=== PATIENT | male | born 1950 | race Caucasian/White ===

== ENCOUNTER → 2017-01-05 | Outpatient (CLI) | payer MEDICARE ==
--- NOTE | 2017-01-06 08:35 | MRI ---
EXAM DESCRIPTION: MRI cervical spine CLINICAL HISTORY: Cervical spine pain COMPARISON: None Available. TECHNIQUE: Multi planar, multi sequence MRI evaluation of the cervical spine FINDINGS: C2-3: Small disc osteophyte ridge left paracentral. Asymmetric mild left facet arthrosis. Mild left foraminal narrowing. No right foraminal narrowing C3-4: Severe disc degeneration with complete loss of disc height and mild retrolisthesis C3 on C4. Endplate edema. Disc osteophyte ridging flattening the ventral thecal sac and indenting the ventral cord. No cord compression against posterior elements. Facet arthrosis and uncovertebral joint hypertrophy bilaterally with moderate to severe left and moderate right foraminal stenosis C4-5: Complete loss of disc height with minimal retrolisthesis C4 on C5. Endplate edema. Disc osteophyte ridging flattens the ventral thecal sac and ventral cord without cord compression against posterior elements. Uncovertebral arthrosis with moderate to severe bilateral foraminal stenosis. C5-6: Complete loss of disc height with partial osseous fusion. No acute disc abnormality or canal stenosis. Mild foraminal narrowing C6-7: Severe disc degeneration with complete loss of disc height, endplate irregularity and endplate edema. Minimal retrolisthesis C6 on C7 with disc osteophyte ridge greater in the left paracentral region flattening the ventral thecal sac and the ventral cord. Disc osteophyte ridge also likely abuts the left C7 ventral nerve root. Contiguous uncovertebral joint hypertrophy and severe left foraminal stenosis. Uncovertebral joint hypertrophy with mild to moderate right foraminal stenosis C7-T1: Loss of disc height without focal disc abnormality or canal stenosis. Severe right facet arthrosis with periarticular bone spurs and osseous edema as well as soft tissue edema. Severe foraminal stenosis may impinge right C8 nerve. Moderate left foraminal narrowing No marrow infiltration or focal marrow lesion. No mass or adenopathy in the soft tissues of the neck Cervical and visualized thoracic spinal cord normal in caliber and signal. No abnormality of the visualized posterior fossa contents. IMPRESSION: Severe multilevel disc degeneration with mild deformity of the cervical cord. No cord compression against posterior elements Multilevel foraminal stenosis. See above discussion regarding each level with respect to any particular radiculopathy C6-7: Severe left foraminal stenosis. Correlate for left C7 radiculopathy C7-T1: Severe right facet arthrosis with periarticular osseous edema. Foraminal stenosis probably impinging right C8 nerve Electronically signed by: Luis Nava MD 01/06/2017 8:35 AM CDT
== END | disposition home or self-care (01) ==
LOC: MRI 08:51
PROVIDERS: ATTEND Family Medicine
DX: M54.2 Cervicalgia (principal)

== ENCOUNTER → 2017-01-18 | Outpatient (CLI) | payer MEDICARE | END | disposition home or self-care (01) | LOC: GMAL 11:48 | PROVIDERS: ATTEND Family Medicine | DX: E55.9 Vitamin D deficiency, unspecified (principal) ==

== ENCOUNTER → 2017-06-06 | Outpatient (CLI) | payer MEDICARE | LOC: GMAL 10:29 | PROVIDERS: ATTEND Family Medicine | DX: D51.3 Other dietary vitamin B12 deficiency anemia (principal); R53.83 Other fatigue; E55.9 Vitamin D deficiency, unspecified; Z12.5 Encounter for screening for malignant neoplasm of prostate | CPT/HCPCS: 82306; 82607; 84443; G0103 ==

== ENCOUNTER → 2017-10-02 | Outpatient (CLI) | payer MEDICARE | LOC: GMAL 10:42 | PROVIDERS: ATTEND Family Medicine | DX: D51.8 Other vitamin B12 deficiency anemias (principal); E29.1 Testicular hypofunction; E55.9 Vitamin D deficiency, unspecified; R53.83 Other fatigue; Z79.899 Other long term (current) drug therapy ==